=== PATIENT | male | born 1980 | race Caucasian/White ===

== ENCOUNTER 2020-08-18 18:42 | Emergency (ER) | payer MEDICAID ==
[~2020-08-18] VITALS: Ht 188 cm; Wt 73.9 kg
[2020-08-18 18:42] VITALS: BP_SYST 139
[2020-08-18 20:02] LABS: BASOPHILS # (AUTO) 0.1 K/uL (0.0-0.2); BASOPHILS % (AUTO) 0.9 % (0.0-2.0); EOSINOPHILS # (AUTO) 0.2 K/uL (0.0-0.4); HEMATOCRIT 41.5 % (36-54); LYMPHOCYTES # (AUTO) 1.7 K/uL (1.0-5.5); LYMPHOCYTES % (AUTO) 24.2 % (20.5-51.5); MEAN CORPUSCULAR HEMOGLOBIN 31 pg (27-31); MEAN CORPUSCULAR HGB CONC 34 % (32-36); MEAN CORPUSCULAR VOLUME 92 fL (79.0-98.0); MONOCYTES # (AUTO) 0.5 K/uL (0.0-1.0); MONOCYTES % (AUTO) 7.9 % (1.7-9.3); NEUTROPHILS # (AUTO) 4.4 K/uL (1.8-7.7); PLATELET COUNT (AUTO) 288 K/uL (130-430); RED BLOOD CELL COUNT(AUTO) 4.54 MIL/uL (4.2-6.2); WHITE BLOOD COUNT (AUTO) 6.9 K/uL (4.8-10.8)
[2020-08-18 20:26] LABS: CALCIUM 8.7 mg/dL (8.4-11.0); CREATININE 1.07 mg/dL (0.55-1.30); POTASSIUM 4.5 mmol/L (3.5-5.1)
[2020-08-18 20:32] LABS: ALBUMIN 3.8 g/dL (3.4-4.8); TOTAL BILIRUBIN 0.5 mg/dL (0.0-1.0)
[2020-08-18] MEDS ORDERED: NACL 0.9% 1,000 ML IV ONE ×2 (20:45→22:00)
[2020-08-19 00:27] LABS: ACETONE, SERUM NEGATIVE (NEGATIVE)
[2020-08-19 00:50] VITALS: BP_SYST 112
== END 2020-08-19 00:50 | disposition home or self-care (01) ==
LOC: SED 18:42
DX: E11.65 Type 2 diabetes mellitus with hyperglycemia (principal); R07.89 Other chest pain
CPT/HCPCS: 36415; 71045; 80053; 82009; 82550; 82962; 83880; 84484; 85025; 93005; 96360; 96361; 99285; J7030

== ENCOUNTER 2021-06-24 10:38 | Emergency (ER) | payer MEDICAID ==
[~2021-06-24] VITALS: Ht 188 cm; Wt 90.7 kg
[2021-06-24 10:40] VITALS: BP_SYST 124
[2021-06-24] MEDS ORDERED: CLIN300C12 PO ×3 (12:49→14:21)
[2021-06-24 13:04] VITALS: BP_SYST 129
== END 2021-06-24 13:00 | disposition home or self-care (01) ==
LOC: SED 10:38
DX: L03.116 Cellulitis of left lower limb (principal); E10.9 Type 1 diabetes mellitus without complications; Z79.899 Other long term (current) drug therapy
CPT/HCPCS: 99283

== ENCOUNTER 2022-03-20 13:29 | Emergency (ER) | payer MEDICAID ==
[~2022-03-20] VITALS: Ht 188 cm; Wt 86.2 kg
[~2022-03-20 13:29] MED LIST: CLIN-142 PO
[2022-03-20 13:30] VITALS: BP_SYST 128
--- NOTE | 2022-03-20 13:30 | NUR ---
BROGHT BACK TO AMBULANCE RAMP AND TRIAGED. WILL ASSUME CARE
--- NOTE | 2022-03-20 14:07 | NUR ---
DR ANDRADE OUT TO AMBULANCE RAMP TO EVALUATE PT.
--- NOTE | 2022-03-20 14:15 | NUR ---
covd juan jose swab performed outside and sent to lab
[2022-03-20] MEDS ORDERED: PHEDM120 PO (14:57)
[2022-03-20] MEDS ORDERED: PRED20TA PO (14:57)
--- NOTE | 2022-03-20 15:27 | NUR ---
Patient given written and verbal discharge instructions and verbalizes understanding. ER MD discussed with patient the results and treatment provided. Patient in stable condition. ID arm band removed. Rx of PREDNISONE, PHENERGAN DM given. Patient educated on pain management and to follow up with PMD. Pain Scale 0/10. Opportunity for questions provided and answered. Medication side effect fact sheet provided.
== END 2022-03-20 15:27 | disposition home or self-care (01) ==
LOC: SED 13:29
DX: J40 Bronchitis, not specified as acute or chronic (principal); E11.9 Type 2 diabetes mellitus without complications; Z20.822 Contact with and (suspected) exposure to COVID-19
CPT/HCPCS: 36415; 71045; 99284